=== PATIENT | male | born 2000 | race Caucasian/White ===

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

== ENCOUNTER 2024-03-31 21:29 | Emergency (ER) | payer OTHER ==
[~2024-03-31] VITALS: Ht 185.4 cm; Wt 95.7 kg
[2024-03-31] MEDS ORDERED: TRAMADOL HCL 50 MG HOME.PACK PO ONE (23:15)
[2024-03-31 23:30] VITALS: BP 122/66
== END 2024-03-31 23:30 | disposition home or self-care (01) ==
LOC: ED 21:29
DX: S20.212A Contusion of left front wall of thorax, initial encounter (principal); W50.0XXA Accidental hit or strike by another person, initial encounter; Y93.75 Activity, martial arts
CPT/HCPCS: 71250; A9270